=== PATIENT | female | born 1995 ===

== ENCOUNTER 2021-03-10 07:30 | Inpatient (IN) | payer BC, OTHER ==
[~2021-03-10] VITALS: Ht 157.5 cm; Wt 99.1 kg
[2021-03-10 08:27] LABS: BASOPHILS ABSOLUTE AUTO 0.03 K/mm3 (0.00-0.23); BASOPHILS PERCENT AUTO 0 % (0-2); EOSINOPHILS ABSOLUTE AUTO 0.11 K/mm3 (0.00-0.68); EOSINOPHILS PERCENT AUTO 1 % (0-6); Hematocrit 38.7 % (33.0-51.0); IMMATURE GRAN ABSOLUTE AUTO 0.07 K/mm3 (0.00-0.10); IMMATURE GRAN PERCENT AUTO 1 % (0-1); LYMPHOCYTES ABSOLUTE AUTO 2.31 K/mm3 (0.84-5.20); LYMPHOCYTES PERCENT AUTO 20 % (21-46); MONOCYTES ABSOLUTE AUTO 1.16 K/mm3 (0.16-1.47); MONOCYTES PERCENT AUTO 10 % (4-13); Mean Corpuscular HGB 27.1 pg (26.0-34.0); Mean Corpuscular HGB Conc 33.6 g/dL (31.5-36.5); Mean Corpuscular Volume 81 fL (80-100); Mean Platelet Volume 10.7 fL (9.1-12.4); NEUTROPHILS ABSOLUTE AUTO 8.02 K/mm3 (1.96-9.15); NEUTROPHILS PERCENT AUTO 69 % (41-73); Platelet Count 171 K/mm3 (150-400); RDW Standard Deviation 37.8 fL (35.1-46.3)
[2021-03-10 09:17] LABS: SARS-Cov-2 (COVID-19) PCR, MMC NEGATIVE (NEGATIVE)
[2021-03-11] MEDS ORDERED: IBU800 M1 PO (13:55)
[2021-03-11] MEDS ORDERED: PRENATAL TABLE1 EAC2 PO (13:56)
--- NOTE | 2021-03-11 15:07 | NUR ---
REVIEWED DISCHARGE WITH PT. PT RECEVIED WRITTEN AND VERBAL INSTRUCTIONS. PT VERBALIZED UNDERSTANDING. PT D/C'D TO BOARDER STATUS WITH PLANS OF D/C WITH TONIGHT AT 2300.
== END 2021-03-11 15:00 | disposition home or self-care (01) | DRG 807 ==
LOC: BC 07:30 → OBS 07:30 → BC 08:00
PROVIDERS: ADMIT Obstetrics & Gynecology
PROC: 10E0XZZ Delivery of Products of Conception, External Approach (ICD-10-PCS; principal; 2021-03-10)
DX: O99.824 Streptococcus B carrier state complicating childbirth (principal); Z37.0 Single live birth; Z3A.39 39 weeks gestation of pregnancy; Z20.822 Contact with and (suspected) exposure to COVID-19; O99.214 Obesity complicating childbirth; E66.9 Obesity, unspecified; O99.52 Diseases of the respiratory system complicating childbirth; J45.909 Unspecified asthma, uncomplicated; Z79.899 Other long term (current) drug therapy
CPT/HCPCS: 36415; 59025; 85025; 86850; 86900; 86901; A9270; J0290; J1885; J2001; J2210; J2590; J3010; J7120; U0004

== ENCOUNTER → 2024-12-17 | Outpatient (CLI) | payer OTHER | LOC: LAB SHORT 09:55 → LAB 09:55 | DX: N76.0 Acute vaginitis (principal) ==

== ENCOUNTER 2025-04-09 19:00 | Inpatient (IN) | payer OTHER ==
[~2025-04-09] VITALS: Ht 157.5 cm; Wt 104.5 kg
[2025-04-09] VITALS (9 sets, daily range): BP systolic 89–119; BP diastolic 51–75
[~2025-04-09 19:00] MED LIST: IBU800 M1 PO; PRENATAL TABLE1 EAC2 PO
[2025-04-09] MEDS ORDERED: OXYTOCIN/RINGER'S LACTATE 500 ML IV SCH (19:10)
[2025-04-09] MEDS ORDERED: Tranexamic Acid 100 ML IV SCH (19:10)
[2025-04-09] MEDS ORDERED: Carboprost Tromethamine 250 MCG/ML 1ML Amp IM PRN (19:10)
[2025-04-09] MEDS ORDERED: OXYTOCIN/RINGER'S LACTATE 500 ML IV PRN (19:10)
[2025-04-09] MEDS ORDERED: Oxytocin 10 Unit / ML Vial IM PRN (19:10)
[2025-04-09] MEDS ORDERED: ePHEDrine Sulfate 50 MG/ML 1ML Injection XX PRN (19:10)
[2025-04-09] MEDS ORDERED: Methylergonovine Maleate 0.2MG / ML 1ML Amp IM PRN (19:10)
[2025-04-09] MEDS ORDERED: FentaNYL 2mcg/ml-Bup 0.1% Epd 250 ML EPI PRN (19:10)
[2025-04-09] MEDS ORDERED: Ondansetron HCl 2 MG / ML 2ML Vial IV PRN (19:20)
[2025-04-09] MEDS ORDERED: Aspir 8181 MG PO (19:57)
[2025-04-09 20:37] LABS: BASOPHILS ABSOLUTE AUTO 0.02 K/mm3 (0.00-0.23); BASOPHILS PERCENT AUTO 0 % (0-2); EOSINOPHILS ABSOLUTE AUTO 0.09 K/mm3 (0.00-0.68); EOSINOPHILS PERCENT AUTO 1 % (0-6); Hematocrit 34.3 % (33.0-51.0); Hemoglobin 12.1 g/dL (11.5-16.0); IMMATURE GRAN ABSOLUTE AUTO 0.09 K/mm3 (0.00-0.10); IMMATURE GRAN PERCENT AUTO 1 % (0-1); LYMPHOCYTES ABSOLUTE AUTO 2.46 K/mm3 (0.84-5.20); LYMPHOCYTES PERCENT AUTO 21 % (21-46); MONOCYTES ABSOLUTE AUTO 1.15 K/mm3 (0.16-1.47); MONOCYTES PERCENT AUTO 10 % (4-13); Mean Corpuscular HGB Conc 35.3 g/dL (31.5-36.5); Mean Corpuscular Volume 85 fL (80-100); NEUTROPHILS ABSOLUTE AUTO 7.75 K/mm3 (1.96-9.15); NEUTROPHILS PERCENT AUTO 67 % (41-73); NRBC ABSOLUTE 0.00 K/mm3 (0.00-0.02); NRBC Auto 0.0 /100 WBC (0.0-0.2); Platelet Count 259 K/mm3 (150-400); RDW Coefficient Variation 13.0 % (11.7-14.2); RDW Standard Deviation 39.0 fL (35.1-46.3)
[2025-04-10 00:27] VITALS: BP 125/84
[2025-04-10] MEDS ORDERED: NS 500 ML IV PRN (01:40)
[2025-04-10 09:41] VITALS: BP 88/53
[2025-04-10 09:44] VITALS: BP 106/64
== END 2025-04-10 09:53 | disposition home or self-care (01) | DRG 833 ==
LOC: OBS 19:00 → BC 19:03 → OBS 19:12 → BC 19:17
PROVIDERS: ADMIT Advanced Practice Midwife
DX: O48.0 Post-term pregnancy (principal); O99.213 Obesity complicating pregnancy, third trimester; O99.343 Other mental disorders complicating pregnancy, third trimester; F41.8 Other specified anxiety disorders; Z87.891 Personal history of nicotine dependence; Z79.82 Long term (current) use of aspirin; Z79.899 Other long term (current) drug therapy; Z3A.40 40 weeks gestation of pregnancy; Z87.81 Personal history of (healed) traumatic fracture
CPT/HCPCS: 36415; 59025; 85025; 86850; 86900; 86901; 86923; J7120

== ENCOUNTER 2025-04-12 22:28 | Inpatient (IN) | payer OTHER ==
[~2025-04-12] VITALS: Ht 157.5 cm; Wt 102.2 kg
[~2025-04-12 22:28] MED LIST changes: +Aspir 8181 MG PO
[2025-04-12 22:45] VITALS: BP 124/78
[2025-04-13] VITALS (14 sets, daily range): BP systolic 111–135; BP diastolic 62–89
[2025-04-13] MEDS ORDERED: FentaNYL Citrate 50 MCG/ML 2 ML Injection IV PRN (01:15)
[2025-04-13] MEDS ORDERED: Methylergonovine Maleate 0.2MG / ML 1ML Amp IM PRN (01:25)
[2025-04-13] MEDS ORDERED: Carboprost Tromethamine 250 MCG/ML 1ML Amp IM PRN (01:25)
[2025-04-13] MEDS ORDERED: Ondansetron HCl 2 MG / ML 2ML Vial IV PRN (01:25)
[2025-04-13] MEDS ORDERED: FentaNYL 2mcg/ml-Bup 0.1% Epd 250 ML EPI PRN (01:25)
[2025-04-13] MEDS ORDERED: ePHEDrine Sulfate 50 MG/ML 1ML Injection XX PRN (01:25)
[2025-04-13] MEDS ORDERED: Oxytocin 10 Unit / ML Vial IM PRN (01:25)
[2025-04-13] MEDS ORDERED: Tranexamic Acid 100 ML IV PRN (01:25)
[2025-04-13] MEDS ORDERED: OXYTOCIN/RINGER'S LACTATE 500 ML IV PRN (01:25)
[2025-04-13 01:30] LABS: BASOPHILS ABSOLUTE AUTO 0.02 K/mm3 (0.00-0.23); BASOPHILS PERCENT AUTO 0 % (0-2); EOSINOPHILS ABSOLUTE AUTO 0.10 K/mm3 (0.00-0.68); EOSINOPHILS PERCENT AUTO 1 % (0-6); Hematocrit 37.9 % (33.0-51.0); Hemoglobin 13.1 g/dL (11.5-16.0); IMMATURE GRAN ABSOLUTE AUTO 0.10 K/mm3 (0.00-0.10); IMMATURE GRAN PERCENT AUTO 1 % (0-1); LYMPHOCYTES ABSOLUTE AUTO 2.48 K/mm3 (0.84-5.20); LYMPHOCYTES PERCENT AUTO 21 % (21-46); MONOCYTES ABSOLUTE AUTO 0.99 K/mm3 (0.16-1.47); MONOCYTES PERCENT AUTO 8 % (4-13); Mean Corpuscular HGB Conc 34.6 g/dL (31.5-36.5); Mean Corpuscular Volume 86 fL (80-100); NEUTROPHILS ABSOLUTE AUTO 8.34 K/mm3 (1.96-9.15); NEUTROPHILS PERCENT AUTO 69 % (41-73); NRBC ABSOLUTE 0.00 K/mm3 (0.00-0.02); NRBC Auto 0.0 /100 WBC (0.0-0.2); Platelet Count 278 K/mm3 (150-400); RDW Coefficient Variation 13.2 % (11.7-14.2); RDW Standard Deviation 40.3 fL (35.1-46.3)
[2025-04-13] MEDS ORDERED: Benzocaine Topical Anesthetic Spray 60GM TOP PRN (10:05)
[2025-04-13] MEDS ORDERED: Witch Hazel/Glycerin PADS TOP PRN (10:05)
[2025-04-13] MEDS ORDERED: HYDROmorphone HCl/Pf 1MG SYR IV PRN (10:05)
[2025-04-13] MEDS ORDERED: Polyethylene Glycol 3350 17 gm PO PRN (10:10)
[2025-04-13] MEDS ORDERED: Ketorolac Tromethamine 30mg Vial IV ONE (11:00)
[2025-04-13] MEDS ORDERED: Ketorolac Tromethamine 30mg Vial IV PRN (11:00)
[2025-04-14 04:24] VITALS: BP 112/70
[2025-04-14 07:20] VITALS: BP 104/63
[2025-04-14] MEDS ORDERED: Prenatal Vit/FE Fumarate/FA 1 Tab PO SCH (09:00)
--- NOTE | 2025-04-14 10:11 | NUR ---
Assumed care at change of shift, reports feeling good, plan to drive self home, DR aware and agrees with plan. No concerns at time, asks appropiate questions, expereinced mom, doing well at feeding.
== END 2025-04-14 11:10 | disposition home or self-care (01) | DRG 833 ==
LOC: OBS 22:28 → BC 22:31 → OBS 04-13 01:18 → BC 04-13 01:19
PROVIDERS: ADMIT Family Medicine
PROC: 10E0XZZ Delivery of Products of Conception, External Approach (ICD-10-PCS; principal; 2025-04-13)
PROC: 10907ZC Drainage of Amniotic Fluid, Therapeutic from Products of Conception, Via Natural or Artificial Opening (ICD-10-PCS; 2025-04-13)
PROC: 3E0R3BZ Introduction of Anesthetic Agent into Spinal Canal, Percutaneous Approach (ICD-10-PCS; 2025-04-13)
PROC: 00HU33Z Insertion of Infusion Device into Spinal Canal, Percutaneous Approach (ICD-10-PCS; 2025-04-13)
DX: O48.0 Post-term pregnancy (principal); Z3A.40 40 weeks gestation of pregnancy; O99.214 Obesity complicating childbirth; O99.344 Other mental disorders complicating childbirth; Z87.81 Personal history of (healed) traumatic fracture; O62.3 Precipitate labor
CPT/HCPCS: 59025; 81003; 85025; 86850; 86900; 86901; 99214; A9270; J1885; J2590